=== PATIENT | female | born 1955 | race Caucasian/White ===

== ENCOUNTER → 2022-12-04 08:43 | Outpatient (REF) | payer OTHER, SELFPAY ==
--- NOTE | 2022-12-04 08:53 | CA_ITS ---
Transthoracic Echocardiogram Patient (Last, First, Middle): Regine Schaeffer L Gender: Female Date of : 1955 Age: 66 Procedure Date: 12/04/2022 Procedure Type: Transthoracic Echocardiogram Location: [place] Height: 165.1 cm Weight: 72.58 kg BSA: 1.80 m2 Heart Rate: 62 bpm BP: 148 / 84 mmHg Financial Aid Counselor: EDUARDO Referring MD: Susana VILLA MSN Certified Medical Transcriptionist: Juan Francisco Garcia MD Symptoms: SOB R06.02 ABNORMAL EKG R94.31 Study Quality: Adequate w contrast/breast implants ECG Rhythm: Sinus Conclusions: - 1. Mildly dilated left ventricle with LVEF of 30-35% with restrictive filling pattern 2. Mild aortic regurgitation 3. [id number] mitral regurgitation 4. No gross pericardial effusion Findings Procedure Information Contrast agent, definity, is being given per protocol without apparent complications. Left Ventricle Mildly increased left ventricular cavity size. There is normal left ventricular wall thickness. The visually estimated ejection fraction is between 30-35%. There is no evidence of regional wall motion abnormalities. There is severe global hypokinesis. Spectral Doppler is indicative of a restrictive filling pattern. Right Ventricle Normal right ventricular cavity size and systolic function. Atria The left atrium is normal in size. There is no evidence of interatrial shunt. The right atrium is normal in size. Aortic Valve Normal aortic valve structure and function. There is no aortic valve stenosis. There is mild aortic valve regurgitation. Mitral Valve Normal mitral valve structure and function. There is mild to moderate mitral valve regurgitation. There is no mitral valve stenosis. Pulmonic Valve The pulmonic valve is likely normal. There is trace to mild pulmonic valve regurgitation. Tricuspid Valve Normal tricuspid valve structure. Tricuspid regurgitation envelope is inadequate for calculation of right ventricular systolic pressure. Normal right atrial pressure. Great Vessels All visible segments of the aorta are normal in size. The pulmonary artery was not well visualized. Venous The inferior vena cava is normal in size and collapses greater than 50% with inspiration. Pericardium/Pleural There is no evidence of pericardial effusion. Prior Study Comparison No prior study available for comparison. Measurements 2D Linear Measurements IVSd: 1.28 0.6-0.9/0.6-1.0 cm LVIDd: 5.75 3.9-5.3/4.2-5.9 cm LVIDd Index: 3.19 2.4-3.2/2.2-3.1 cm/m2 LVIDs: 5.34 2.0-3.6 cm LVPWd: 0.65 0.7-1.1 cm LA Diam: 4.20 2.7-3.8/3.0-4.0 cm LAIDs Index: 2.33 1.5-2.3 cm/m2 LV Mass: 273.39 67-162/88-224 g LV Mass Index: 151.88 43-95/49-115 g/m2 LVOT Diam: 2.20 3.0+(-)1.3 cm 2D Systolic Function EF 4C: 31.30 >55% EF 2C: 32.80 >55% EF BiP: 30.90 >55% Mitral Valve MV Pk E: 1.00 MV PK A: 0.50 MV Decel Time: 162.00 E/A: 2.00 E'Lateral: 6.20 E'Medial: 4.35 E/E' Med: 22.90 E/E' Lat: 16.10 PHT: 47.00 MVA PHT: 4.68 Decel [place]: 6.16 MR VTI: 1.95 Aortic Valve AoV Pk Jesús: 0.92 AoV Pk Grad: 3.00 RANDY: 3.00 LVOT LVOT Pk Jesús: 0.74 LVOT Mn Jesús: 0.51 LVOT VTI: 0.15 LVOT Pk Grad: 2.00 LVOT Mn Grad: 1.00 LVOT Diam: 2.20 LVOT Area: 3.80 Diastolic Function MV Pk E: 1.00 MV Pk A: 0.50 E/A: 2.00 E'Medial: 4.35 E/E' Med: 22.90 E' Laterial: 6.20 E/E' Lat: 16.10 Right Ventricle TAPSE (mm): 24.00 TVS' Jesús: 8.38 Tricuspid Valve RA Press: 3.00 Great Vessels Aorta Sinus of Valsalva: 3.40 2.0-3.5 cm Ao Asc: 3.00 2.1-3.4 cm Pulmonary Valve PV Pk Jesús: 0.62 Peak PV Grad: 2.00 Updated in Other Vendor System with Status of Final Juan Francisco Garcia MD electronically signed on 12/04/2022 12:06:43 PM with status of Final
== END ==
LOC: HO.CARD 08:43
PROVIDERS: PCP Internal Medicine; Visit Provider Nurse Practitioner Family
DX: R06.02 Shortness of breath (principal); R94.31 Abnormal electrocardiogram [ECG] [EKG]
CPT/HCPCS: 93306; Q9957

== ENCOUNTER → 2022-12-04 08:53 | Outpatient (BNV) | payer OTHER, SELFPAY | PROVIDERS: PCP Internal Medicine; Visit Provider Internal Medicine Cardiovascular Disease | DX: I34.0 Nonrheumatic mitral (valve) insufficiency (principal); I35.1 Nonrheumatic aortic (valve) insufficiency | CPT/HCPCS: 93306 ==

== ENCOUNTER → 2023-05-23 07:52 | Outpatient (REF) | payer MEDICARE, SELFPAY ==
--- NOTE | 2023-05-23 08:01 | CA_ITS ---
Transthoracic Echocardiogram Patient (Last, First, Middle): Regine Schaeffer L Gender: Female Date of : 1955 Age: 67 Procedure Date: 05/23/2023 Procedure Type: Transthoracic Echocardiogram Location: [facility] Height: 165.1 cm Weight: 72.58 kg BSA: 1.80 m2 Heart Rate: bpm BP: 105 / 60 mmHg Chili Maker: Referring MD: Reggie Madrigal MD Front Desk Person: Juan Francisco Garcia MD Symptoms: I42.9 CARDIOMYOPATHY Study Quality: Adequate ECG Rhythm: Sinus Conclusions: - 1. Moderate to severe LV systolic dysfunction with LVEF of 30 35% with impaired relaxation filling pattern 2. Trivial aortic regurgitation and mild mitral regurgitation 3. Normal RV systolic pressure 4. No gross pericardial effusion Findings Procedure Information Contrast agent, definity, is being given per protocol without apparent complications. Left Ventricle Normal left ventricular cavity size. There is normal left ventricular wall thickness. The left ventricular systolic function is moderate to severely decreased. The visually estimated ejection fraction is between 30-35%. Spectral Doppler is indicative of an impaired relaxation filling pattern. E/E prime ratio is between 8 and 15 consistent with indeterminate filling pressures. Right Ventricle Normal right ventricular cavity size and systolic function. Atria The left atrium is likely dilated. Interatrial shunt cannot be excluded. The right atrium is normal in size. Aortic Valve The aortic valve structure and function is likely normal. There is no aortic valve stenosis. There is trace (trivial) aortic valve regurgitation. Mitral Valve Normal mitral valve structure and function. There is mild mitral valve regurgitation. There is no mitral valve stenosis. Pulmonic Valve The pulmonic valve is likely normal. Tricuspid Valve Normal tricuspid valve structure. There is trace tricuspid valve regurgitation. The right ventricular systolic pressure is normal. The right ventricular systolic pressure is 18 mmHg. Normal right atrial pressure. There is no evidence of pulmonary hypertension. Great Vessels All visible segments of the aorta are normal in size. The pulmonary artery was not well visualized. There is no dilatation of the ascending aorta measuring 3.20 cm. Venous The inferior vena cava is normal in size and collapses greater than 50% with inspiration. Pericardium/Pleural There is no evidence of pericardial effusion. Prior Study Comparison No significant change compared to prior study dated: 12/04/2022. delay in reporting due to technical issues Measurements 2D Linear Measurements IVSd: 1.15 0.6-0.9/0.6-1.0 cm LVIDd: 4.50 3.9-5.3/4.2-5.9 cm LVIDd Index: 2.50 2.4-3.2/2.2-3.1 cm/m2 LVIDs: 3.74 2.0-3.6 cm LVPWd: 1.04 0.7-1.1 cm Ao Root: 3.30 2.1-3.5 cm LA Diam: 3.80 2.7-3.8/3.0-4.0 cm LAIDs Index: 2.11 1.5-2.3 cm/m2 LV Mass: 216.63 67-162/88-224 g LV Mass Index: 120.35 43-95/49-115 g/m2 LVOT Diam: 2.10 3.0+(-)1.3 cm 2D Systolic Function EF 4C: 33.50 >55% EF 2C: 26.90 >55% EF BiP: 29.10 >55% Mitral Valve MV Pk E: 0.40 MV PK A: 0.72 MV Decel Time: 249.00 E/A: 0.60 E'Lateral: 3.92 E'Medial: 3.48 E/E' Med: 11.40 E/E' Lat: 10.20 PHT: 73.00 MVA PHT: 3.01 Decel Centre: 1.60 Aortic Valve AoV Pk Jesús: 1.10 AoV Mn Jesús: 0.76 AoV VTI: 0.26 AoV Pk Grad: 5.00 Aov Mn Grad: 3.00 RANDY Cont.VTI: 2.06 LVOT LVOT Pk Jesús: 0.72 LVOT Mn Jesús: 0.50 LVOT VTI: 0.16 LVOT Pk Grad: 2.00 LVOT Mn Grad: 1.00 LVOT Diam: 2.10 LVOT Area: 3.46 Diastolic Function MV Pk E: 0.40 MV Pk A: 0.72 E/A: 0.60 E'Medial: 3.48 E/E' Med: 11.40 E' Laterial: 3.92 E/E' Lat: 10.20 Right Ventricle TAPSE (mm): 19.00 TVS' Jesús: 10.00 Tricuspid Valve TR Pk Jesús: 1.95 TR Pk Grad: 15.00 RA Press: 3.00 RVSP: 18.00 Great Vessels Aorta Ao Root-2D: 3.30 2.0-3.7 cm Ao Asc: 3.20 2.1-3.4 cm Pulmonary Valve PV Pk Jesús: 0.72 Peak PV Grad: 2.00 Updated in Other Vendor System with Status of Final Juan Francisco Garcia MD electronically signed on 05/24/2023 3:47:08 PM with status of Final
== END ==
LOC: HO.CARD 07:52
PROVIDERS: PCP Internal Medicine; Visit Provider Internal Medicine
DX: I42.9 Cardiomyopathy, unspecified (principal)
CPT/HCPCS: 93306; Q9957

== ENCOUNTER → 2023-05-23 08:01 | Outpatient (BNV) | payer MEDICARE, SELFPAY | PROVIDERS: PCP Internal Medicine; Visit Provider Internal Medicine Cardiovascular Disease | DX: I34.0 Nonrheumatic mitral (valve) insufficiency (principal) | CPT/HCPCS: 93306 ==